=== PATIENT | female | born 1950 | race Caucasian/White ===

== ENCOUNTER 2016-11-20 20:16 | Emergency (ER) | payer MEDICARE ==
[~2016-11-20] VITALS: Ht 160 cm; Wt 45.5 kg
[~2016-11-20 20:16] MED LIST: ALBU2.5V4 IH; ALBU8.5H2 INHALATION; ASPI325T32 PO; CHOL500011 PO; CYA1000I IM; CYCL10TA9 PO; FLUT9.9S NS; HYDR-4003 PO; KLO1T PO; LAMO25TA PO; LEVO75TA4 PO; MS15TCR PO; MULT-666 PO; POLY17PO6 PO; TOPI200T17 PO
[2016-11-20 20:36] VITALS: BP 156/87; PULSE 76; RESP 18; O2SAT 96
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
[2016-11-20] MEDS ORDERED: HYDROcodone-APAP 5-325 mg Tablet PO ONE (22:55)
[2016-11-20] MEDS ORDERED: Morphine ER 15 mg (MS Contin) Tablet PO ONE (22:55)
== END 2016-11-20 23:20 | disposition home or self-care (01) ==
LOC: SED 20:16
DX: Z76.0 Encounter for issue of repeat prescription (principal); R52 Pain, unspecified; I10 Essential (primary) hypertension; E78.5 Hyperlipidemia, unspecified; F17.200 Nicotine dependence, unspecified, uncomplicated; Z86.73 Personal history of transient ischemic attack (TIA), and cerebral infarction without residual deficits; Z87.01 Personal history of pneumonia (recurrent); Z91.041 Radiographic dye allergy status; Z88.0 Allergy status to penicillin; Z88.5 Allergy status to narcotic agent; Z88.8 Allergy status to other drugs, medicaments and biological substances; Z79.82 Long term (current) use of aspirin

== ENCOUNTER 2017-03-06 07:24 | Emergency (ER) | payer MEDICARE ==
[~2017-03-06 07:24] MED LIST changes: -LEVO75TA4 PO; +LEVO88TA4 PO
[2017-03-06 07:33] VITALS: BP 140/72; PULSE 78; RESP 14; O2SAT 93
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
[2017-03-06 08:03] VITALS: BP 161/78; PULSE 85; RESP 29; O2SAT 98
[2017-03-06] MEDS ORDERED: lamoTRIgine 100 mg Tablet PO ONE (08:15)
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
[2017-03-06 08:20] LABS: BASOPHILS % (AUTO) 0.4 % (0-3); EOSINOPHILS % (AUTO) 0.7 % (0-5); MONOCYTES % (AUTO) 13.9 % (4-12); Mean Corpuscular Hemoglobin 34.6 pg (27.0-35.0); Mean Corpuscular Volume 100.2 fL (81-100); Platelet Count 258 bil/L (150-400)
--- NOTE | 2017-03-06 08:26 | DRSVH ---
PROCEDURE: CT CERVICAL SPINE WITHOUT CONTRAST ([id number]) INDICATIONS: 66 year-old female with ground level fall. TECHNIQUE: Noncontrast 3 mm thick sections acquired from the skull base to the T5 level. Sagittal and coronal r eformats were then constructed. For radiation dose reduction, the following was used: automated exp osure control, adjustment of mA and/or kV according to patient size. COMPARISON: [facility], CT, CT CHEST ABD PELVIS W CON, 11/01/2016, 13:04. [facility], CT, CT CHEST ABD PELVIS W CON, 08/20/2016, 11:04. [facility], CT, CT CHEST ABD PELVIS W CON, 06/17/2016, 10:17. [facility], CT, CT CHEST WO CON, 04/22/2016, 11:09. [facility], CT, CT CHEST WO CON, 01/29/2016, 21:07. [facility], CT, CT CHEST WO CON, 01/05/2016, 14:47. [facility], CT, CT CHEST ABD PELVIS W CON, 01/25/2017, 12:20. [facility], CT, CT CERVICAL SPINE WO CON, 10/12/2015, 8:08. FINDINGS: Image quality: Excellent. Bones: No fractures or dislocations. Visualized superior ribs are intact. There is mild C4-C5 and C 5-C6 disc degeneration as before. Soft tissues: Prevertebral soft tissues are normal in thickness. No paravertebral hematomas. No ap ical pneumothoraces. Posterior left upper lobe scarring is unchanged. 1.4 x 0.7 cm spiculated nodule within the right upper lobe is also unchanged since December 2015. IMPRESSION: 1. No acute bony injury to the cervical and upper thoracic spine from the foramen magnum to the T5 le colleen. 2. 1.4 cm right upper lobe nodule is unchanged, as well as posterior left upper lobe scarlike opaciti es. Dictated by: Bruce Alvarado M.D. on 03/06/2017 at 8:18 Approved by: Bruce Alvarado M.D. on 03/06/2017 at 8:24
--- NOTE | 2017-03-06 08:31 | DRSVH ---
PROCEDURE: X-RAY CHEST ONE VIEW, PORTABLE ([id number]) INDICATIONS: 66 year-old female with recent fall. TECHNIQUE: One view of the chest was acquired. COMPARISON: [facility], NM, PET NECK TO MID THIGH STD, 02/16/2016, 9:00. [facility], CT, CT CHEST ABD PELVIS W CON, 01/25/2017, 12:20. [facility], CR, XR CHEST 2VW, 04/08/2016, 16:31. [facility], CR, XR CHEST 1VW (PORTABLE), 03/01/2016, 9:30. [facility], CR, XR CHEST 2VW, 01/29/2016, 17:50. FINDINGS: Surgical changes and devices: Right chest wall Port-A-Cath is again noted, as well as gastroesophagea l junction surgical clips. Lungs and pleura: No pleural effusions or pneumothorax. No acute airspace opacities. Lateral left m idlung chronic opacities are unchanged. Mediastinum: Mediastinal contours appear normal. Heart size is normal. Bones and chest wall: No suspicious bony lesions. Nonacute left lateral sixth through eighth rib fr actures are unchanged. Overlying soft tissues appear unremarkable. IMPRESSION: 1. No acute cardiopulmonary disease. Chronic lateral left midlung scarlike opacities may reflect sequ elae of radiation therapy, as it corresponds with previously noted mass lesion on comparison PET/CT. Any residual viable neoplasm cannot be excluded radiographically. 2. Nonacute left lateral sixth and eighth rib fractures as before. Dictated by: Bruce Alvarado M.D. on 03/06/2017 at 8:24 Approved by: Bruce Alvarado M.D. on 03/06/2017 at 8:29
[2017-03-06 08:52] LABS: Magnesium 1.7 mg/dL (1.6-2.6)
--- NOTE | 2017-03-06 09:59 | DRSVH ---
PROCEDURE: X-RAY FINGERS, TWO VIEWS RIGHT INDICATIONS: 66 year-old female with right ring finger laceration. TECHNIQUE: AP hand, 2 views of the right fourth finger(s) acquired. COMPARISON: None. FINDINGS: Bones: No fractures or dislocations. No suspicious bony lesions. There is third metacarpophalangea l joint narrowing, without osteophyte formation. Soft tissues: No radiopaque soft tissue foreign bodies. IMPRESSION: 1. No acute bony injuries of the right fourth finger. 2. Third metacarpophalangeal joint narrowing from cartilage loss, suggesting background rheumatoid ar thritis in the absence of any osteophyte formation. Dictated by: Bruce Alvarado M.D. on 03/06/2017 at 9:56 Approved by: Bruce Alvarado M.D. on 03/06/2017 at 9:57
[2017-03-06 11:22] LABS: APPEARANCE,URINE CLEAR (CLEAR,HAZY); COLOR,URINE YELLOW (YELLOW); OCCULT BLOOD,URINE NEGATIVE (NEGATIVE); PH,URINE 5.5 (5.0-8.0); UROBILINOGEN,URINE NORMAL (NORMAL)
[2017-03-06 11:28] VITALS: BP 132/84; PULSE 79; RESP 30; O2SAT 96
[2017-03-06 11:40] LABS: ICTOTEST,URINE NEGATIVE (Negative)
[2017-03-06 11:47] VITALS: BP 132/84; PULSE 79; RESP 30; O2SAT 96
== END 2017-03-06 11:48 | disposition home or self-care (01) ==
LOC: EDUNIT# 07:24 → EDBD 07:24 → SED 09:30
DX: R56.9 Unspecified convulsions (principal); E87.1 Hypo-osmolality and hyponatremia; S50.312A Abrasion of left elbow, initial encounter; S60.041A Contusion of right ring finger without damage to nail, initial encounter; S00.83XA Contusion of other part of head, initial encounter; W18.30XA Fall on same level, unspecified, initial encounter; Y92.129 Unspecified place in nursing home as the place of occurrence of the external cause; Y93.89 Activity, other specified; Y99.8 Other external cause status; R40.2410 Glasgow coma scale score 13-15, unspecified time; R07.9 Chest pain, unspecified; I69.398 Other sequelae of cerebral infarction; C34.92 Malignant neoplasm of unspecified part of left bronchus or lung; I10 Essential (primary) hypertension; J44.9 Chronic obstructive pulmonary disease, unspecified; G40.909 Epilepsy, unspecified, not intractable, without status epilepticus; G89.29 Other chronic pain; E78.5 Hyperlipidemia, unspecified; E03.9 Hypothyroidism, unspecified; F17.200 Nicotine dependence, unspecified, uncomplicated; Z92.21 Personal history of antineoplastic chemotherapy; Z79.82 Long term (current) use of aspirin; Z91.041 Radiographic dye allergy status; Z88.0 Allergy status to penicillin; Z88.5 Allergy status to narcotic agent; Z88.8 Allergy status to other drugs, medicaments and biological substances
CPT/HCPCS: 36415; 70450; 71010; 72125; 73140; 80053; 81000; 82948; 83735; 83930; 84443; 84484; 85025; 93005; 96374; 96375; 99285; J2060; J2270

== ENCOUNTER 2017-03-16 15:59 | Emergency (ER) | payer MEDICARE ==
[~2017-03-16] VITALS: Ht 160 cm; Wt 43.2 kg
[2017-03-16 16:05] VITALS: BP 115/63; PULSE 81; RESP 17; O2SAT 92
--- NOTE | 2017-03-16 16:13 | ED.REPORT ---
HPI-Trauma Multiple Date of Service Mar 16, 2017 ED Provider: Yandel Díaz MD The patient is a 66 year old female with a history of CVA (with residual left sided weakness), stage IV pulmonary adenocarcinoma on chemotherapy treatment every 3 weeks, hypertension, COPD and epilepsy who presents to the ED via EMS following a GLF that occurred just prior to arrival. Patient was reportedly walking when her legs "became weak" and she fell. She does not believe a seizure caused her fall this afternoon. The patient is currently complaining of neck pain and left shoulder discomfort. Patient currently takes Lamictal and topiramate for her seizures. She is unsure whether she hit her head or lost consciousness. Per patient's friend the patient may have briefly lost consciousness for an unknown period of time. Patient was recently seen in the ED on 03/06 for a similar GLF and was discharged in stable condition following a reassuring workup. Workup was indicative that a seizure caused her fall. Nursing Notes Stated Complaint: GLF Chief Complaint: General Complaint Nursing Notes Reviewed: Yes Allergies: Coded Allergies: Contrast Media (Verified Allergy, Severe, chest pain, declusive reaction, 11/20/16) Penicillins (Verified Allergy, Unknown, unknown, 11/20/16) oxycodone (Verified Allergy, Unknown, unknown, 11/20/16) atorvastatin (Verified Adverse Reaction, Severe, liver dysfunction, ) pravastatin (Verified Adverse Reaction, Severe, diarrhea, 11/20/16) Scheduled Albuterol HFA (Proair HFA) 8.5 Gm Hfa.aer.ad 2 PUFFS INHALATION Q4H Aspirin (Aspirin) 325 Mg Tablet 325 MG PO QPM Cholecalciferol (Vitamin D3) (Vitamin D3) 5,000 Unit Tablet 5,000 UNIT PO DAILY Cyanocobalamin (Cyanocobalamin Injection) 1,000 Mcg/1 Ml Vial 1,000 MCG IM Monthly Lamotrigine (Lamotrigine) 25 Mg Tablet 150 MG PO BID Levothyroxine (Levothyroxine) 88 Mcg Tablet 88 MCG PO DAILY Morphine Sulfate ER (MS Contin) 15 Mg Tablet.er 15 MG PO BID Multivitamin (Once Daily) 1 Each Tablet 1 EACH PO DAILY Polyethylene Glycol 3350 (Miralax) 17 Gm Powd.pack 17 GM PO DAILY Topiramate (Topamax) 200 Mg Tablet 200 MG PO BID Scheduled PRN Albuterol Neb Soln (Albuterol Neb Soln) 2.5 Mg/3 Ml Vial.neb 2.5 MG IH TID PRN PRN For Shortness of Breath Clonazepam (Clonazepam) 1 Mg Tablet 1 MG PO HS PRN PRN For Insomnia Cyclobenzaprine (Cyclobenzaprine) 10 Mg Tablet 10 MG PO Q8H PRN PRN For Spasm Fluticasone Propionate (Flonase Allergy Relief) 9.9 Ml [place].susp 2 SPRAY NS DAILY PRN PRN For Congestion each nostril Hydrocodone-Acetaminophen 5-325 mg (Hydrocodone-Acetaminophen 5-325 mg) 1 Each Tablet 1 TABLET PO Q8H PRN PRN For Pain General Time Seen by Provider: 17:04 Chief Complaint Other (GLF) Hx Obtained From: Patient Arrived By: Ambulance Onset Occurred: Just prior to arrival Symptom Duration: Since onset Progression Since Onset: Unchanged Pertinent Negative: Pt denies other symptoms Recent Healthcare: No recent doctor visit, No recent hospitalization Past Medical History Past Medical History Notes: Biopsy of left lung mass one week ago 2015: Follows E positive for pulmonary adenocarcinoma, the alveolar type Past Medical History CVA in 2005 with residual left sided weakness Grave's disease Sciatica Hip fx pneumonia Epilepsy, followed by Dr. Sharma Osteoarthritis Pernicious anemia Carotid stenosis Reports: Cancer, Hyperlipidemia, Hypertension, Stroke Reports: Thyroid disease Past Surgical History 2x back surgeries Carpal tunnel release Hiatal hernia repair Esophageal stricture s/p dilation Reports: Hysterectomy, Tonsillectomy Family History non-contributory Smoking History Current Every Day Smoker Social History Alcohol Use: "Social" Drug Use: Denies drug use Other Social History: Lives [place] [facility] Ambulatory Status Walker Review of Systems Musculoskeletal: Reports: Joint pain (Left shoulder pain), Neck pain Neurologic: Reports: Change LOC, Weakness, Denies: Headache Complete sys rev & neg: except as marked. Physical Exam Initial Vital Signs Vital Signs (First) Date Time Temp Pulse Resp B/P Pulse Ox O2 Delivery O2 Flow Rate FiO2 03/16/17 16:05 36.8 81 17 115/63 92 03/16/17 19:30 Room Air Initial VS: Reviewed Extremities: Vascular intact, Neuro intact, No swelling, No tenderness Skin: Warm, Dry, No cyanosis Psychiatric: Mood/affect normal, Behavior normal, Normal thought content General/Constitutional: Awake, Alert, No acute distress Head / Eyes: Atraumatic, Normocephalic, PERRL Eyelids: Positive: Ptosis L (Mild) EYE patch over left eye Neck: Atraumatic, Supple Respiratory / Chest: Atraumatic, Breath sounds NL, Breath sounds = bilat, No respiratory distress Port present over chest wall without any redness, swelling, warmth or other indications of infection No palpable rib fractures Minimal tenderness over left anterior ribs Cardiovascular: Heart rate NL, Regular rhythm, Heart sounds NL, No gallop, No murmurs, No rubs Abdomen: Atraumatic, Soft, Non-tender, No distention Back: Atraumatic, Inspection NL, Non-tender Neurologic: Oriented X3, Speech NL, No motor deficits, No sensory deficits, CN II - XII intact, Reflexes equal bilat, Cerebellar NL Interpretation & Diagnostics Lab Results Interpretation Result Diagram: 03/16/17 1736 03/16/17 1736 Test 03/16/17 17:36 03/16/17 17:37 White Blood Count 6.2th/mm3 (3.8-10.1) Red Blood Count 4.09mil/mm3 (3.90-5.20) Hemoglobin 14.1g/dL (12.0-15.6) Hematocrit 41.1% (35.0-46.0) Mean Corpuscular Volume 100.5fL (81-100) Mean Corpuscular Hemoglobin 34.5pg (27.0-35.0) Mean Corpuscular Hemoglobin Concent 34.3% (32.0-37.0) Red Cell Distribution Width 12.4% (12.3-15.4) Platelet Count 245bil/L (150-400) Neutrophils (%) (Auto) 45.6% (40-74) Lymphocytes (%) (Auto) 34.1% (14-46) Monocytes (%) (Auto) 15.4% (4-12) Eosinophils (%) (Auto) 3.7% (0-5) Basophils (%) (Auto) 0.6% (0-3) Sodium Level 134mEq/L (134-144) Potassium Level 4.0mEq/L (3.5-5.2) Chloride Level 94mEq/L (97-108) Carbon Dioxide Level 25mmol/L (18-29) Blood Urea Nitrogen 18mg/dL (8-27) Creatinine 1.01mg/dL (0.57-1.00) Estimat Glomerular Filtration Rate 79mL/min (>59) Glucose Level 97mg/dL (60-99) Calcium Level 9.0mg/dL (8.5-10.1) Magnesium Level 2.0mg/dL (1.6-2.6) Total Bilirubin 0.2mg/dL (0.0-1.2) Aspartate Amino Transf (AST/SGOT) 17U/L (0-50) Alanine Aminotransferase (ALT/SGPT) 10U/L (0-32) Alkaline Phosphatase 55U/L (25-165) Troponin T < 0.010ug/L (0.0-0.011) Total Protein 6.6g/dL (6.4-8.4) Albumin 3.9g/dL (3.4-5.0) Hold López Top Tube Received (Received) ECG Interpretation ECG Interpretation: Sinus rhythm Rate 73 bpm Inferior Q waves present No st segment elevation No t wave abnormalities Prior (03/06/2017) no significant changes Time: 17:04 Interpreted by: ED physician X-Ray Chest Interpretation Chest Xray Interpretation: IMPRESSION: Resolving left midlung density. Continued plain film surveillance is recommended to ensure resolution, and to exclude underlying or central malignancy. Dictated by: Jonathan Kaiser M.D. on 03/16/2017 at 16:57 Interpretation / Wet Read by: Interpret - Radiologist CT Head Interpretation IMPRESSION: Prior stroke mid right cerebrum, stable over time, no acute stroke or trauma or hemorrhage found. Dictated by: Alok Suárez M.D. on 03/16/2017 at 17:07 Study: Head CT no contrast Interpretation / Wet Read by: Interpret - Radiologist Re-Eval/Medical Decision Med Decision/Clinical Course The patient is a 66 year old female with a history of CVA (with residual left sided weakness), stage IV pulmonary adenocarcinoma on chemotherapy treatment every 3 weeks, hypertension, COPD and epilepsy who presents to the ED via EMS following a GLF that occurred just prior to arrival. Patient was reportedly walking when her legs "became weak" and she fell. She does not believe a seizure caused her fall this afternoon. The patient is currently complaining of neck pain and left shoulder discomfort. Patient currently takes Lamictal and topiramate for her seizures. She is unsure whether she hit her head or lost consciousness. Per patient's friend the patient may have briefly lost consciousness for an unknown period of time. Patient was recently seen in the ED on 03/06 for a similar GLF and was discharged in stable condition following a reassuring workup. Workup was indicative that a seizure caused her fall. Here in the emergency department the patient is afebrile, hemodynamically stable and in no apparent distress. She has no lateralizing neurologic deficits. She is speaking in full sentences, alert/awake and answering questions appropriately. Chest x-ray: IMPRESSION: Resolving left midlung density. Continued plain film surveillance is recommended to ensure resolution, and to exclude underlying or central malignancy. EKG Sinus rhythm Rate 73 bpm Inferior Q waves present No st segment elevation No t wave abnormalities Prior (03/06/2017) no significant changes CT IMPRESSION: Prior stroke mid right cerebrum, stable over time, no acute stroke or trauma or hemorrhage found. Laboratory studies notable as below: CBC unremarkable CMP unremarkable Trop negative The patient received IV fluids as she appeared somewhat dehydrated and reported feeling dramatically improved. The cause of the patient's fall today is unclear. While she does have a seizure history I do not see any obvious signs that she suffered a seizure causing her symptoms today though I cannot rule this out. She appears dehydrated and orthostatic causes of syncope may have contributed to her presentation today. I see no evidence on EKG or telemetry monitoring suggestive of acute arrhythmia though again this cannot be definitively ruled out. The patient's comorbidities I recommended admission for further monitoring and workup, however the patient adamantly does not want to do this. She states that given her multiple comorbidities, chemotherapy and previous time spent in the hospital that she does not want to be readmitted or spent any additional time here. She demonstrates obvious decisional capacity and is reasonable in her requests not to be admitted. She will follow up closely with her primary care physician outpatient basis. Prior to discharge follow-up and return precautions were reviewed in detail with the patient who verbalized understanding and agreement with the plan. The patient was discharged in stable condition. Re-Evaluation/Progress : Time of Eval: 17:20 Re-Evaluation/Progress Note: She is informed of her results and diagnosis. The patient understands and agrees with the intended treatment plan. Counseled Regarding: Diagnosis, Lab results Discharge & Departure Impression: Primary Impression: Fall from ground level Additional Impressions: Syncope Syncope type: unspecified Qualified Code: R55 - Syncope and collapse History of seizures History of lung cancer Dehydration Disposition: Home Discharge Condition All VS Reviewed: Yes Condition: Improved Patient Instructions: Fall Prevention (ED) Additional Instructions: Thank you for seeking care at emergency room. Our primary goal today in the ED was to evaluate you for any life-threatening conditions. Your evaluation was reassuring. You should follow-up with your primary doctor in the next week. You should return to the ED immediately if you develop headache, fevers, vomiting, cough, shortness of breath, chest pain, lightheadedness, weakness or any other concerning signs or symptoms. Thank you for letting us partake in your care today. Referrals: German Rubalcava MD (PCP) Scribe Attestation Portions of this note were transcribed by Tamara Evans. I, Dr. Díaz personally performed the history, physical exam and medical decision-making; I reviewed and confirmed the accuracy of the information in the transcribed note. copies to: German Rubalcava MD, Beck O MD Mar 16, 2017 16:13 TAMARA EVANS Mar 16, 2017 17:09
[2017-03-16 16:45] VITALS: BP 103/66; PULSE 71; RESP 16; O2SAT 97
--- NOTE | 2017-03-16 16:59 | DRSVH ---
PROCEDURE: X-RAY CHEST ONE VIEW, PORTABLE ([id number]) INDICATIONS: chest pain TECHNIQUE: One view of the chest was acquired. COMPARISON: [facility], CR, XR CHEST 1VW (PORTABLE), 03/06/2017, 7:49. [facility], CR, XR CHEST 1VW (PORTABLE), 03/01/2016, 9:30. [facility], CR, XR CHEST 1VW (LEONARDA BLE), 01/23/2016, 10:59. FINDINGS: Surgical changes and devices: Right chest wall leonarda catheter, tip of which is in the mid SVC. Surgic al clips at the gastroesophageal junction. Lungs and pleura: No pleural effusions or pneumothorax. Previously seen patchy left midlung opacity has decreased. Mediastinum: Mediastinal contours appear normal. Heart size is normal. Bones and chest wall: No suspicious bony lesions. Overlying soft tissues appear unremarkable. IMPRESSION: Resolving left midlung density. Continued plain film surveillance is recommended to ensur e resolution, and to exclude underlying or central malignancy. Dictated by: Jonathan Kaiser M.D. on 03/16/2017 at 16:57 Approved by: Jonathan Kaiser M.D. on 03/16/2017 at 16:58
--- NOTE | 2017-03-16 17:10 | DRSVH ---
PROCEDURE: CT BRAIN WITHOUT CONTRAST ([id number]) INDICATIONS: injury TECHNIQUE: Noncontrast 4.5 mm thick angled axial sections acquired from the foramen magnum to the vertex, with c oronal reformats. COMPARISON: [facility], CT, CT BRAIN WO CON, 03/06/2017, 7:37. FINDINGS: Image quality: Excellent. CSF spaces: Basal cisterns are patent. No extra-axial fluid collections. Ventricles are normal in size and shape. Brain: No midline shift. No intracranial masses or hemorrhage. Brian-white matter interface is norm al. Old encephalomalacia at the mid right hemisphere is again seen. Skull and face: Calvarium and visualized facial bones are intact, without suspicious lesions. Sinuses: Visualized sinuses and mastoids are clear. IMPRESSION: Prior stroke mid right cerebrum, stable over time, no acute stroke or trauma or hemorrhag e found. Dictated by: Alok Suárez M.D. on 03/16/2017 at 17:07 Approved by: Alok Suárez M.D. on 03/16/2017 at 17:08
[2017-03-16 17:40] LABS: BASOPHILS % (AUTO) 0.6 % (0-3); EOSINOPHILS % (AUTO) 3.7 % (0-5); MONOCYTES % (AUTO) 15.4 % (4-12); Mean Corpuscular Hemoglobin 34.5 pg (27.0-35.0); Mean Corpuscular Volume 100.5 fL (81-100); NEUTROPHILS % (AUTO) 45.6 % (40-74); Platelet Count 245 bil/L (150-400)
[2017-03-16 18:09] LABS: TROPONIN T < 0.010 ug/L (0.0-0.011)
[2017-03-16] MEDS ORDERED: 0.9% Sodium Chloride 1,000 ML IV ONE (18:40)
[2017-03-16 19:30] VITALS: BP 113/59; PULSE 69; RESP 20; O2SAT 96
[2017-03-16] MEDS ORDERED: HepLOK Flush 100 unit/mL 5 mL Inj ONE (20:11)
== END 2017-03-16 20:25 | disposition home or self-care (01) ==
LOC: SED 15:59 → EDBD 15:59 → SED 20:25
DX: R55 Syncope and collapse (principal); W01.0XXA Fall on same level from slipping, tripping and stumbling without subsequent striking against object, initial encounter; Y93.89 Activity, other specified; Y92.89 Other specified places as the place of occurrence of the external cause; Y99.8 Other external cause status; E86.0 Dehydration; M54.2 Cervicalgia; M25.512 Pain in left shoulder; I10 Essential (primary) hypertension; I69.998 Other sequelae following unspecified cerebrovascular disease; R53.1 Weakness; J44.9 Chronic obstructive pulmonary disease, unspecified; G40.909 Epilepsy, unspecified, not intractable, without status epilepticus; E05.00 Thyrotoxicosis with diffuse goiter without thyrotoxic crisis or storm; E78.5 Hyperlipidemia, unspecified; F17.200 Nicotine dependence, unspecified, uncomplicated; Z92.21 Personal history of antineoplastic chemotherapy; Z87.01 Personal history of pneumonia (recurrent); Z98.890 Other specified postprocedural states; Z79.82 Long term (current) use of aspirin; Z88.0 Allergy status to penicillin; Z88.5 Allergy status to narcotic agent; Z88.8 Allergy status to other drugs, medicaments and biological substances; Z91.041 Radiographic dye allergy status
CPT/HCPCS: 36415; 70450; 71010; 80053; 83735; 84484; 85025; 93005; 96360; 96361; 99285; J7030